=== PATIENT | female | born 1975 ===

== ENCOUNTER 2018-12-02 15:15 | Emergency (ER) | payer MEDICAID ==
[~2018-12-02] VITALS: Ht 160 cm; Wt 104.1 kg
[2018-12-02 16:47] VITALS: BP 154/81
== END 2018-12-02 16:49 | disposition home or self-care (01) ==
LOC: ER 15:17
DX: M25.532 Pain in left wrist (principal); Z88.8 Allergy status to other drugs, medicaments and biological substances; W22.8XXA Striking against or struck by other objects, initial encounter; Y93.K1 Activity, walking an animal; Y92.89 Other specified places as the place of occurrence of the external cause; Y99.8 Other external cause status
CPT/HCPCS: 29125; 73110; 99283